=== PATIENT | male | born 1995 | race Caucasian/White ===

== ENCOUNTER 2018-07-04 17:25 | Emergency (ER) | payer SELFPAY ==
[2018-07-04 17:31] VITALS: BP 148/75
--- NOTE | 2018-07-04 17:39 | UC ---
Cardiac HPI - HPI Summary HPI Summary: This patient is a 23 year old male presenting to [facility] [place] with a chief complaint of chest pain since yesterday night, around midnight. Patient states he experienced left sided chest pain, radiating down his left arm. The pain is described as a pressure. The pain is rated 2/10 in severity during episode. Symptoms aggravated by nothing. Symptoms alleviated by deep breathing. Patient states he does not have any chest pain currently, but is still dizzy. Patient additionally reports diaphoresis, dizziness, chills. Patient denies SOB, back pain, abd pain, cough. - History of Current Complaint Stated Complaint: CHEST PAIN Time Seen by Provider: 07/04/18 17:27 Hx Obtained From: Patient Onset/Duration: Lasting Hours, Still Present Current Severity: Mild Pain Intensity: 2 Chest Pain Location: Left Anterior Character: Pressure/Squeezing Aggravating Factor(s): Nothing Alleviating Factor(s): Other - deep breaths Associated Signs & Symptoms: Positive: Negative - SOB, back pain, abd pain, cough, Dizziness, Diaphoresis - Allergy/Home Medications Allergies/Adverse Reactions: Allergies Allergy/AdvReac Type Severity Reaction Status Date / Time No Known Allergies Allergy Verified 07/04/18 17:34 Home Medications: Home Medications Dextroamphetamine/Amphetamine [Adderall Xr 20 mg Capsule] 20 mg PO DAILY [History Confirmed 07/04/18] PMH/Surg Hx/FS Hx/Imm Hx Previously Healthy: Yes Other Endocrine History: Negative: Diabetes Other Respiratory History: Negative: Asthma - Surgical History Surgical History: Yes Surgery Procedure, Year, and Place: R foot surgery 2018 - Family History Known Family History: Negative: Cardiac Disease - Social History Occupation: Student Lives: Dormitory/Roommates Alcohol Use: Weekly Substance Use Type: None Smoking Status (MU): Never Smoked Tobacco Review of Systems Constitutional: Negative - fever, Chills Respiratory: Negative - cough, SOB Cardiovascular: Chest Pain Gastrointestinal: Negative - Abd pain Genitourinary: Negative - back pain Neurological: Other - dizziness Physical Exam - Summary Physical Exam Summary: Appearance: Well-appearing, Well-nourished Skin: Warm, Dry, No rash Eyes: Normal, PERRL, EOMI, sclera anicteric ENT: Normal Neck: Supple, nontender Respiratory: Clear to auscultation Cardiovascular: S1, S2, no murmur, no rub, no gallop Abdomen: Soft, nontender, no organomegaly Bowel sounds: Present Musculoskeletal: Normal, Strength/ROM Intact, no edema, pulses symmetrical Neurological: Normal, A&Ox3, cranial nerves II-XII WNL, follows commands, gait not tested, sensation intact to pin and light touch Psychiatric: affect normal, behavior appropriate, dressed appropriately, judgment intact Triage Information Reviewed: Yes Vital Signs: Initial Vital Signs Temp 98.6 F 07/04/18 17:26 Pulse 75 07/04/18 17:26 Resp 18 07/04/18 17:26 BP 148/75 07/04/18 17:26 Pulse Ox 99 07/04/18 17:26 Diagnostics - Radiology CXR Xray Interpretation: No Acute Changes - CXR reveals, per radiologist, IMPRESSION : NO EVIDENCE FOR ACTIVE CARDIOPULMONARY DISEASE. physician has reviewed this radiology report. Radiology Interpretation Completed By: Radiologist - EKG EKG Comments: An EKG, taken 1555, reveals NSR (76 BPM), J point elevation, normal axis, normal intervals - Assessment/Plan Course Of Treatment: This patient is a 23 year old male presenting to [facility] [place] with a chief complaint of chest pain since yesterday night, around midnight. Patient states he experienced left sided chest pain, radiating down his left arm. An EKG, taken 1555, reveals NSR (76 BPM), J point elevation, normal axis, normal intervals. CXR reveals, per radiologist, IMPRESSION: NO EVIDENCE FOR ACTIVE CARDIOPULMONARY DISEASE. physician has reviewed this radiology report. Patient will be discharged with dx of hyperventilation syndrome, atypical chest pain. Patient is advised to follow up with PCP if symptoms continue. The patient is agreeable with this plan. - Clinical Impression Provider Diagnoses: Atypical chest pain, Hyperventiliation syndrome Discharge - Sign-Out/Discharge Documenting (check all that apply): Patient Departure All imaging exams completed and their final reports reviewed: Yes - Discharge Plan Condition: Stable Disposition: HOME Referrals: No Primary Care Phys,NOPCP [Primary Care Provider] - - Attestation Statements Document Initiated by Scribe: Yes Documenting Scribe: Yvette Suarez Provider For Whom Scribe is Documenting (Include Credential): Ean Lewis MD Scribe Attestation: Yvette Whitt scribed for Ean Lewis MD on 07/04/18 at 1807.
--- NOTE | 2018-07-04 17:58 | RAD ---
INDICATION: Chest pain, lightheadedness. COMPARISON: There are no relevant prior studies available for comparison. TECHNIQUE: Dual-energy PA and lateral views of the chest were obtained. FINDINGS: The heart is within normal limits in size. Mediastinal and hilar contours appear within normal limits. The lungs are clear. No pleural effusion or pneumothorax is seen. IMPRESSION: NO EVIDENCE FOR ACTIVE CARDIOPULMONARY DISEASE.
== END 2018-07-04 18:26 | disposition home or self-care (01) ==
LOC: UCEAST 17:25
DX: R07.89 Other chest pain (principal); F45.8 Other somatoform disorders; R42 Dizziness and giddiness
CPT/HCPCS: 71046; 93005; 99211; G0463